=== PATIENT | male | born 1970 | race Asian ===

== ENCOUNTER 2018-08-04 19:09 | Emergency (ER) | payer OTHER | END 2018-08-04 21:30 | disposition home or self-care (01) | LOC: FER 19:09 ==

== ENCOUNTER 2021-05-19 20:00 | Emergency (ER) | payer OTHER ==
[2021-05-19 20:15] VITALS: BP 147/94; PULSE 80; TEMP 98.5; BMI 22.8
== END 2021-05-19 20:27 | disposition home or self-care (01) ==
LOC: FER 20:00
DX: R21 Rash and other nonspecific skin eruption (principal)
CPT/HCPCS: 99283-25